=== PATIENT | female | born 1980 | race Caucasian/White ===

== ENCOUNTER 2019-10-02 16:27 | Outpatient (REF) | payer OTHER, SELFPAY ==
--- NOTE | 2019-10-02 16:00 | PAPFT_PTH ---
PATIENT: Christina Hartman LOC: [facility] U#:[id number] AGE/SX: 39/F ROOM: RE10/02/[address]: KRISTEN Perez : 1980 BED: DIS: 10/02/2019 SPEC #: [id number] RECD: 10/02/19 17:54 STATUS: MARITO REQ #: [id number] DAMASO: 10/02/19 16:[address]: Leslie Mcginnis DEPT: [facility] Cytology RECD BY: Pippa Alford ENTERED: 10/02/19 17:54 SP TYPE: PAPFT OTHR DR: Yuko Gross Tissues: 1 - CX/ENDOCX FOR PAP SMEARS Procedures: PAP THIN PREP/UVM Screening HPV DNA PROBE Comments: [id number]
== END 2019-10-02 16:47 ==
LOC: LBN 16:27
PROVIDERS: PCP Nurse Practitioner Adult Health; Visit Provider Nurse Practitioner Family
DX: Z12.4 Encounter for screening for malignant neoplasm of cervix (principal); Z11.51 Encounter for screening for human papillomavirus (HPV)
CPT/HCPCS: 88142; 87624

== ENCOUNTER 2021-09-29 18:41 | Outpatient (REF) | payer OTHER, SELFPAY ==
[2021-09-29 17:18] LABS: TSH (W/Ref FT4) 0.78 uIU/mL (0.36-3.74)
== END 2021-09-29 18:42 | disposition home or self-care (01) ==
LOC: NCHCN 18:41
PROVIDERS: PCP Nurse Practitioner; Visit Provider Nurse Practitioner Family
DX: R63.4 Abnormal weight loss (principal); F41.9 Anxiety disorder, unspecified
CPT/HCPCS: 84443

== ENCOUNTER 2022-06-14 17:24 | Outpatient (REF) | payer OTHER, SELFPAY ==
[2022-06-14 19:27] LABS: HCT 36.5 % (36.0-46.0); MCH 31.7 pg (27.0-33.0); MCHC 32.9 % (32.0-36.0); MCV 97 fL (80-95); MPV 10.2 fL (8.0-11.0); Platelet Count 298 10^3/uL (130-400); RBC 3.78 10^6/uL (3.93-5.22); RDW-SD 42.5 fL; WBC 6.14 10^3/uL (4.4-10.8)
[2022-06-14 20:06] LABS: Anion Gap 7.8 mmol/L (3-11); BUN 23 mg/dL (7-18); CO2 28.2 mmol/L (21.0-32.0); CREATININE 0.8 mg/dL (0.55-1.02); Calcium 8.7 mg/dL (8.5-10.1); Chloride 107 mmol/L (98-107); Estimated GFR 94.28 (mL/min/1.73m2); Glucose 109 mg/dL (74-106); Potassium 4.3 mmol/L (3.5-5.1); Sodium 143 mmol/L (136-145); TSH (W/Ref FT4) 0.76 uIU/mL (0.36-3.74)
[2022-06-14 20:19] LABS: Vitamin D 25 Total 50.7 ng/mL (30-100)
== END 2022-06-14 17:25 | disposition home or self-care (01) ==
LOC: NCHCN 17:24
PROVIDERS: PCP Nurse Practitioner; Visit Provider Nurse Practitioner Family
DX: R53.83 Other fatigue (principal)
CPT/HCPCS: 80048; 82306; 85027; 84443

== ENCOUNTER 2023-01-09 01:08 | Outpatient (CLI) | payer OTHER, SELFPAY ==
--- NOTE | 2023-01-09 15:44 | DI.MAMMO_ITS ---
Exam(s) MAMMO SCREENING EXAM: MAMMO SCREENING CLINICAL HISTORY: screening,z12.39 TECHNIQUE: Bilateral full field digital CC and MLO mammographic images were obtained with 3D tomosyn thesis and utilizing computer aided detection (CAD). COMPARISON: None. FINDINGS: Masses/Architectural Distortion: None seen. Microcalcifications: No suspicious pleomorphic-type are seen. Skin Thickening/Nipple Retraction: None. IMPRESSION: 1. No significant interval change with no specific features of malignancy noted. 2. Unless there is more urgent need, screening mammography is recommended, as per [employer] guidelines. BI-RADS Category 1 - Negative Breast Density - Category B - Scattered areas of fibroglandular density Breast density category C or D implies that the patient has dense breast tissue. Dense breast tissue is very common and is not abnormal but dense breast tissue can make it harder to find cancer on a ma mmogram. Also, dense breast tissue may increase their breast cancer risk. This information about the result of the mammogram report was provided to the patient to raise their awareness. Use this report when you speak with the patient about their risks for breast cancer, which includes their family hist ory. At that time, you may recommend for more screening tests (Ultrasound or MRI) as they might be us eful based on their risk. A negative radiographic report should not delay biopsy if a dominant or clinically suspicious mass is present. Up to ten percent of cancers are not identified on mammography. A negative report may reinforce clinical impression. Adenosis and dense breasts may obscure an underlying neoplasm. False positive reports average 6 to 10%. Patient will receive a letter notifying them of these results.
== END 2023-01-09 01:28 ==
LOC: DI 01:08
PROVIDERS: PCP Nurse Practitioner Family; Visit Provider Obstetrics & Gynecology
DX: Z12.31 Encounter for screening mammogram for malignant neoplasm of breast (principal)
CPT/HCPCS: 77063; 77067

== ENCOUNTER 2023-11-09 11:48 | Outpatient (REF) | payer OTHER, SELFPAY ==
[2023-11-09 14:58] LABS: HCT 41.1 % (36.0-46.0); HGB 13.6 g/dL (11.2-15.7); MCH 31.5 pg (27.0-33.0); MCHC 33.1 % (32.0-36.0); MCV 95 fL (80-95); MPV 9.7 fL (8.0-11.0); Platelet Count 317 10^3/uL (130-400); RBC 4.32 10^6/uL (3.93-5.22); RDW 12.5 % (11.7-14.6); RDW-SD 43.9 fL; WBC 6.25 10^3/uL (4.4-10.8)
[2023-11-09 15:17] LABS: ALT 39 U/L (14-59); AST 23 U/L (15-37); Albumin 3.9 g/dL (3.4-5.0); Alkaline Phosphatase 60 U/L (46-116); Anion Gap 12.8 mmol/L (3-11); BUN 16 mg/dL (7-18); Bilirubin, Total 0.6 mg/dL (0.2-1.0); CO2 25.2 mmol/L (21.0-32.0); CREATININE 0.8 mg/dL (0.55-1.02); Calcium 9.2 mg/dL (8.5-10.1); Chloride 105 mmol/L (98-107); Glucose 92 mg/dL (74-106); Potassium 4.5 mmol/L (3.5-5.1); Sodium 143 mmol/L (136-145); TSH (W/Ref FT4) 1.35 uIU/mL (0.36-3.74); Total Protein 6.9 g/dL (6.4-8.2)
[2023-11-11 10:21] LABS: Hepatitis C Ab w Rflx HCV PCR Negative (Negative)
[2023-11-11 10:31] LABS: HIV-1/2 Ag & Ab Screen Negative (Negative)
== END 2023-11-09 11:49 | disposition home or self-care (01) ==
LOC: LBN 11:48
PROVIDERS: PCP Nurse Practitioner Family; Visit Provider Nurse Practitioner Family
DX: R53.83 Other fatigue (principal); F32.A Depression, unspecified; Z51.81 Encounter for therapeutic drug level monitoring; Z11.4 Encounter for screening for human immunodeficiency virus [HIV]; Z11.59 Encounter for screening for other viral diseases
CPT/HCPCS: 80053; 85027; 86803; 87389; 84443

== ENCOUNTER 2024-12-18 17:08 | Outpatient (REF) | payer BC, SELFPAY ==
--- NOTE | 2024-12-18 15:40 | PAPFT_PTH ---
PATIENT: Christina Hartman LOC: [facility] U#:[id number] AGE/SX: 44/F ROOM: RE12/18/[address]: Gabby Lentz MD : 1980 BED: DIS: 12/18/2024 SPEC #: [id number] RECD: 12/18/24 18:03 STATUS: MARITO REQ #: [id number] DAMASO: 12/18/24 15:[address]: Gabby Lentz [facility] Cytology RECD BY: Pippa Alford ENTERED: 12/18/24 18:03 SP TYPE: PAPFT OTHR DR: Romeo Segura DNP Tissues: 1 - CX/ENDOCX FOR PAP SMEARS Procedures: PAP THIN PREP/UVM Screening HPV DNA PROBE Comments: [id number] (HPV 16 & 18/45)
== END 2024-12-18 17:09 | disposition home or self-care (01) ==
LOC: LBN 17:08
PROVIDERS: PCP Nurse Practitioner Family; Visit Provider Obstetrics & Gynecology
DX: Z12.4 Encounter for screening for malignant neoplasm of cervix (principal)
CPT/HCPCS: 88142; 87624

== ENCOUNTER 2025-01-15 00:17 | Outpatient (CLI) | payer BC, SELFPAY ==
--- NOTE | 2025-01-15 16:01 | DI.MAMMO_ITS ---
Exam(s) MAMMO SCREENING EXAM: MAMMO SCREENING CLINICAL HISTORY: screening,Z12.31 TECHNIQUE: Mammograms were interpreted according to the usual protocol including computer analysis w [employer] CAD system, tomosynthesis and C-view imaging. COMPARISON: 2022 FINDINGS: The breasts are composed of scattered fibroglandular densities, Breast Density category B. No suspicious masses or suspicious microcalcifications are seen. No skin thickening or abnormal axillary lymph nodes are seen. There has been no significant change from prior exams. IMPRESSION: BI-RADS Category 1, Negative mammogram Yearly screening mammography is recommended. Breast Density - Category B, scattered fibroglandular densities. A negative radiographic report should not delay biopsy if a dominant or clinically suspicious mass is present. Up to ten percent of cancers are not identified on mammography. A negative report may reinforce clinical impression. Adenosis and dense breasts may obscure an underlying neoplasm. False positive reports average 6 to 10%. Patient will receive a letter notifying them of these results.
== END 2025-01-15 00:37 ==
LOC: DI 00:17
PROVIDERS: PCP Nurse Practitioner Family; Visit Provider Obstetrics & Gynecology
DX: Z12.31 Encounter for screening mammogram for malignant neoplasm of breast (principal); R92.323 Mammographic fibroglandular density, bilateral breasts
CPT/HCPCS: 77063; 77067

== ENCOUNTER 2025-03-29 15:08 | Outpatient (REF) | payer BC, SELFPAY ==
[2025-03-29 21:12] LABS: Anion Gap 10.0 mmol/L (3-11); BUN 18 mg/dL (7-18); CO2 27.0 mmol/L (21.0-32.0); Calcium 9.3 mg/dL (8.5-10.1); Chloride 103 mmol/L (98-107); Estimated GFR 93.12 (mL/min/1.73m2); Glucose 90 mg/dL (74-106); Potassium 4.3 mmol/L (3.5-5.1); Sodium 140 mmol/L (136-145); Uric Acid 4.2 mg/dL (2.6-6.0)
== END 2025-03-29 15:09 | disposition home or self-care (01) ==
LOC: LBN 15:08
PROVIDERS: PCP Nurse Practitioner Family; Visit Provider Nurse Practitioner Family
DX: M77.41 Metatarsalgia, right foot (principal)
CPT/HCPCS: 80048; 84550

== ENCOUNTER 2025-04-23 01:38 | Outpatient (CLI) | payer BC, SELFPAY ==
--- NOTE | 2025-04-23 15:01 | DI.RAD_ITS ---
Exam(s) XR FOOT LT COMPLETE XR FOOT RT COMPLETE EXAM: XR FOOT RT COMPLETE CLINICAL HISTORY: Bilat bunions/pain m21.611 RT FOOT M21.612 LEFT FOOT. TECHNIQUE: 2D digital imaging was performed. Three views of both feet. COMPARISON: CR XR FOOT LT COMPLETE from 04/23/2025 FINDINGS: BONES: No acute fracture is present. No bony destructive lesion is seen. JOINTS: No dislocation present. No significant degenerative changes. Mild 1st metatarsal varus and hallux valgus bilaterally which appears symmetric. The plantar arches are maintained. SOFT TISSUE: Normal. IMPRESSION: Mild bilateral hallux valgus. DATA REPOSITORY: RADIATION DOSE DELIVERED:
== END 2025-04-23 01:58 ==
LOC: DI 01:38
PROVIDERS: PCP Nurse Practitioner Family; Visit Provider Podiatrist
DX: M21.611 Bunion of right foot (principal); M21.612 Bunion of left foot; M20.32 Hallux varus (acquired), left foot; M20.31 Hallux varus (acquired), right foot
CPT/HCPCS: 73630

== ENCOUNTER 2025-08-06 09:58 | Day surgery (SDC) | payer BC, SELFPAY ==
--- NOTE | 2025-08-05 16:42 | W.PM.DSUDISC ---
Date of service: 08/06/25 Discharge Plan Disposition Patient Disposition: Home Condition: Good Discharge Details Reason For Visit: Screening colonoscopy Attending Provider: Pawan Jacome Primary Care Provider: Romeo Nolan Home Meds and New Rx's Prescriptions: Continued folic acid 800 mcg tablet 0.8 mg PO DAILY vitamin B complex Tablet 1 tab PO DAILY vitamin E (dl, acetate) 450 mg (1,000 unit) capsule 450 mg PO DAILY PRN calcium carbonate [Antacid (calcium carbonate)] 200 mg calcium (500 mg) tablet,chewable 200 mg PO .bi weekly cholecalciferol (vitamin D3) 250 mcg (10,000 unit) capsule 1,000 mcg PO DAILY hydroxyzine HCl 25 mg tablet 25 mg PO PRN Qty: 30 1RF zinc gluconate 30 mg tablet 30 mg PO DAILY bupropion HCl 200 mg tablet sustained-release 12 hr 200 mg PO QAM Qty: 90 3RF Rx Instructions: dose change multivitamin [Daily Multiple] 1 EACH tablet 1 ea PO DAILY ascorbic acid (vitamin C) [Vitamin C] 500 MG tablet,chewable 500 mg PO DAILY Discontinued bisacodyl [Dulcolax (bisacodyl)] 5 mg tablet,delayed release (DR/EC) 5 mg PO ONCE Qty: 4 0RF Rx Instructions: Take per colonoscopy instructions provided by ordering providers office polyethylene glycol 3350 17 gram/dose powder 17 g PO ONCE Qty: 238 0RF Rx Instructions: Take per colonoscopy instructions provided by ordering providers office Discharge Instructions Instructions: Diverticulosis Additional Instructions: Christina, I hope you make a quick recovery after the procedure. Things went very smoothly. Your prep was excellent, we could see everything fine. I saw no signs of any tumors or polyps today. You do have a few diverticula scattered along your colon. Diverticula are little weak spots in the muscular layer of the colon wall that cause the inside lining to pocket or pooch outwards. I find diverticulosis in most patients that I do colonoscopies on, and generally there are nothing to worry about. They can get infected or inflamed, during flareups that we refer to as diverticulitis. Hopefully years will never bother you. I will attach a little bit of information here about typical approaches to diverticulosis. If you have any questions at all, please do not hesitate to ask, otherwise I recommend a 10-year interval for your next screening colonoscopy. 1. If tolerated, consume a soft, low fiber diet for 1-2 days. 2[address] Do not drive, drink alcohol, operate machinery, make critical decisions, or do activities that require coordination or balance for 24 hours. 3. Because air was put into your colon during the procedure, expelling air from your rectum (passing gas or farting) is normal. 4. You may not have a bowel movement for 1-3 days because of the colonoscopy prep. This is normal. 5. Go directly to the emergency room if you notice any of the following: Develop chills (warm to touch), or if you have a thermometer and your temperature is above 101 Difficulty breathing or difficultly swallowing Persistent vomiting Severe abdominal pain, other than gas cramps Severe chest pain Black, tarry stools Any bleeding – exceeding one tablespoon 6. Call your physician if the site where your intravenous was started becomes red, swollen, painful, and warm to touch. 7. Your physician has reviewed your pre-procedure medications. Please continue to take those medications as previously ordered. You will be given specific information/education regarding any changes to your medications before leaving. Stand Alone Forms: Anesthesia Discharge Inst., William Mccarty (DSU), Portal Information Activity:: Activity as Tolerated Diet:: As Tolerated Discharge Orders Discharge Orders: Discharge Order (Routine); Ordered 08/05/25 Ordered By: Pawan Jacome DS: Diagnosis Discharge Diagnosis (1) Encounter for screening colonoscopy: Status: Acute
--- NOTE | 2025-08-05 16:43 | COLE_ITS ---
Date of service: 08/06/25 Time of Service: 12:28 Colonoscopy Report Date of procedure: 08/06/25 Pre-op diagnosis general: Screening colonoscopy Post-op diagnosis procedure note: other (Diverticulosis) Procedure: Colonoscopy Surgeon: Pawan Jacome Anesthesia Type: General:No Airway Estimated blood loss (mL): 0 Pathology: none sent Complications: None Disposition: same day Indications: Christina is a 45-year-old woman who needs a screening colonoscopy Prep: Miralax/Dulcolax Procedure Start Time: 11:59 Procedure End Time: 12:16 Retraction Time: 8 Findings: Sigmoid diverticulosis Procedure Description: After the induction of anesthesia, and with the patient in left lateral decubitus position, I began by performing an external anorectal exam. Perineum and skin were normal, as was the anal verge. There was no evidence of external hemorrhoids. Next, I performed a digital rectal exam. I did not appreciate any abnormal findings. Next, I advanced a colonoscope into the rectal vault. I performed retroflexion. This appeared normal. Using irrigation, I then advanced the colonoscope beyond the rectal folds and into the sigmoid colon before advancing towards the cecum. The quality of the prep was excellent. There are a few diverticula within the sigmoid segment. the scope was noted to be in the cecum by identification of the ileocecal valve and appendiceal orifice. I then began withdrawing the colonoscope using repeated irrigation as necessary for full evaluation of the colonic mucosa. Once the scope was withdrawn to the level of the rectum, great care was taken to examine portions of the rectal folds. I saw no signs of tumors nor polyps. Finally, the scope was withdrawn and the patient was brought to the same-day surgery recovery unit as the anesthetic wore off. The findings and instructions were shared with the patient prior to discharge. [place] Bowel Prep [place] Bowel Prep Right Colon: 3 Left Colon: 3 Transverse Colon: 3 Total Score: 9
[2025-08-06 10:47] VITALS: BP 124/88; PULSE 75; RESP 16; TEMP 36.5; O2SAT 99
--- NOTE | 2025-08-06 11:02 | W.ANESPRE ---
General Info Date of Service Date Performed: 08/06/25 Height: 5 ft 3 in Weight: 78.6 kg Body Mass Index (BMI): 30.7 Surgical Procedure: Operation Date: 08/06/25 11:35 Proposed Procedure Side Surgeon luis Jacome MD Meds Allergies and Home Medications Allergies Allergy/AdvReac Type Severity Reaction Status Date / Time lactose AdvReac Other (See Verified 08/06/25 10:42 Comment) Environmental Allergy Mild Nasal Uncoded 08/06/25 10:42 Congestion Home Medication Medication Instructions Recorded ascorbic acid (vitamin C) 500 mg 500 mg PO DAILY 12/05/15 chewable tablet (Vitamin C) multivitamin (Daily Multiple 1 ea PO DAILY 12/05/15 tablet) calcium carbonate (Antacid 200 mg PO .bi weekly 10/02/19 (calcium carbonate)) cholecalciferol (vitamin D3) 250 1,000 mcg PO DAILY 07/25/22 mcg (10,000 unit) capsule folic acid 800 mcg tablet 0.8 mg PO DAILY 07/25/22 vitamin B complex 1 tab PO DAILY 07/25/22 vitamin E (dl, acetate) 450 mg 450 mg PO DAILY PRN 07/25/22 (1,000 unit) capsule hydroxyzine HCl 25 mg tablet 25 mg PO PRN #30 tabs 09/28/23 zinc gluconate 30 mg tablet 30 mg PO DAILY 12/18/24 bupropion HCl 200 mg tablet,12 hr 200 mg PO QAM #90 tabs 03/29/25 sustained-release Current Visit Medications: Current Medications Generic Name Dose Route Start Last Admin Trade Name Freq PRN Reason Stop Dose Admin Ringer's Solution 1,000 mls @ 80 mls/hr 08/06/25 06:00 IV 08/06/25 23:59 INFUSION VEL IV Miscellaneous Supplies 1 each 08/06/25 06:00 Iv Access IV 08/06/25 23:59 DIRECTED VEL Sodium Chloride 0 ml 08/06/25 06:00 Normal Saline Flush 10 Ml Syr IV 08/06/25 23:59 PRN PRN Sodium Chloride 0 ml 08/06/25 06:00 Normal Saline 10 Ml Vial IJ 08/06/25 23:59 DIRECTED PRN Sterile Water 0 ml 08/06/25 06:00 Water,Injection,Sterile 10 Ml Vial IJ 08/06/25 23:59 DIRECTED PRN PFSH Active Problems Active Problems: Problem Status Onset Code Encounter for screening colonoscopy Acute Z12.11 Pain in right foot Acute M79.671 Plantar fasciitis Acute M72.2 Acquired forefoot varus of right foot Acute M21.6X1 Achilles tendon contracture, bilateral Acute M67.01, M67.02 Bilateral bunions Acute M21.611, M21.612 Metatarsalgia of right foot Acute M77.41 Fatigue Acute R53.83 Depression Chronic F32.A Surgical History Surgical History Hx of wisdom tooth extraction Tobacco Smoking/Tobacco Use Status: Never Passive smoking exposure: No Alcohol Alcohol Intake: never Substance Use Substance use: Never Substance use type: does not use Prental History History 1 Para 1 Hx # Term Pregnancies Multiple births Hx # Pregnancies Ectopic pregnancies AB induced Hx Number of Living Children 1 AB spontaneous Past Pregnancies Del. Date GA/Weeks # Preg Succ Route Wgt Sex Labor Lgth Anesthesia Location Prov Complic 03/06/11 vaginal 3401.943 g Male [facility] Delivery Date: 03/06/11 Last Updated by: Viji Kelley pt reports no complications Vital Signs and Lab Results Vital Signs Most Recent Vital Signs in EMR: Most Recent Vital Signs Temp Pulse Resp BP Pulse Ox 36.5 C 75 16 124/88 99 08/06/25 10:47 08/06/25 10:47 08/06/25 10:47 08/06/25 10:47 08/06/25 10:47 Anesthesia Assessment and Plan Anesthesia History Personal History: No History of Anesthesia Complications Family History: No Family History of Anesthesia Complications Exercise Tolerance Exercise Tolerance: Metabolic Equivalents>4 Pertinent Negatives Pertinent Negatives: No Symptoms of GERD, No Major Cardiovascular Symptoms or Complaints, No Major Pulmonary Symptoms or Complaints and No History of CVA/TIA Cardiac & Pulmonary Exam Cardiac Exam: Normal S1/S2 Heart Sounds Pulmonary Exam: Clear Bilateral Breath Sounds Implantable Cardiac Device Does patient have a Pacemaker or an ICD?: No Airway Exam Known Difficult Airway: No Mallampati Class: 2 Mouth Opening: Normal (> 3cm) Thyromental Distance: Greater than 3 cm Neck Range of Motion: Full ROM Neck Circumference: Normal Teeth Condition: Normal Dentition ASA Classification ASA Score: ASA 2 Emergency Case?: No NPO Status NPO Status: NPO Clears >2 hours, Solids >8 hours Status Status: Negative HCG Anesthesia Plan Resuscitation Status: Full Code Anesthesia Technique: General Anesthesia Airway Planned: Natural Airway Monitors Used: Standard Monitors
[2025-08-06 11:03] VITALS: BMI 30.7
[2025-08-06] MEDS: Lactated Ringers 1,000 ML 80 ML IV (11:04)
[2025-08-06 12:19] VITALS: BP 118/72; PULSE 80; RESP 16; TEMP 36.3; O2SAT 100
[2025-08-06 12:46] VITALS: BP 114/71; PULSE 77; RESP 16; TEMP 36.5; O2SAT 99
--- NOTE | 2025-08-06 13:25 | W.ANESPOSTOP ---
Postoperative Evaluation Date, Time and Location Date Performed: 08/06/25 Time Performed: 13:25 Patient Location: Day Surgery Unit Vital Signs Most Recent Imported Vital Signs: Most Recent Vital Signs Temp Pulse Resp BP Pulse Ox 36.5 C 77 16 114/71 99 08/06/25 12:46 08/06/25 12:46 08/06/25 12:46 08/06/25 12:46 08/06/25 12:46 Pain Score Most Recent Pain Score: Most Recent Pain Score Pain Level 0 08/06/25 12:46 Assessment Mental Status: Awake (Alert & Oriented to Patient Baseline) Airway and Respiratory Function: Patent airway with normal (patient baseline) respiratory exam Cardiovascular Function: Hemodynamically Stable Hydration Status: Adequately Hydrated Nausea & Vomiting: No Nausea or Vomiting Pain: Pt. Denies Any Pain Peripheral Nerve Block: Patient did not receive a nerve block
== END 2025-08-06 12:51 | disposition home or self-care (01) ==
LOC: SUR 09:59
PROVIDERS: PCP Nurse Practitioner Family; Visit Provider Surgery
PROC: 0DJD8ZZ Inspection of Lower Intestinal Tract, Via Natural or Artificial Opening Endoscopic (ICD-10-PCS; CPT 45378; principal; 2025-08-06 11:30)
DX: Z12.11 Encounter for screening for malignant neoplasm of colon (principal); K57.30 Diverticulosis of large intestine without perforation or abscess without bleeding
CPT/HCPCS: 45378; 81025; J2704

== ENCOUNTER 2025-08-20 15:54 | Outpatient (REF) | payer BC, SELFPAY ==
[2025-08-20 21:46] LABS: Cholesterol 155 mg/dL (<200); HDL Cholesterol 56 mg/dL (>40)
== END 2025-08-20 15:55 | disposition home or self-care (01) ==
LOC: LBN 15:54
PROVIDERS: PCP Nurse Practitioner Family; Visit Provider Nurse Practitioner Family
DX: Z13.220 Encounter for screening for lipoid disorders (principal)
CPT/HCPCS: 80061